=== PATIENT | male | born 1975 | race Native Hawaiian/Other Pacific Islander ===

== ENCOUNTER 2020-12-16 14:54 | Emergency (ER) | payer BC, OTHER ==
[~2020-12-16] VITALS: Ht 177.8 cm; Wt 95.3 kg
[2020-12-16 15:01] VITALS: TEMP 98
[2020-12-16 15:26] LABS: PLATELET COUNT 147 K/uL (142-355)
[2020-12-16 15:37] LABS: POTASSIUM 4.1 mmol/L (3.6-5.2); SODIUM 139 mmol/L (136-145)
[2020-12-16 15:48] LABS: PARTIAL THROMBOPLASTIN TIME 28.7 SECONDS (24.5-33.6)
[2020-12-16 17:00] VITALS: BP 104/58
== END 2020-12-16 17:00 | disposition home or self-care (01) ==
LOC: ED 14:54
PROVIDERS: Emergency Medicine
DX: U07.1 COVID-19 (principal); J12.82 Pneumonia due to coronavirus disease 2019; R09.02 Hypoxemia
CPT/HCPCS: 36415; 80053; 83880; 84484; 85027; 85379; 85610; 85730; 93005; 96374; 99284; J1100